=== PATIENT | female | born 1950 | race Caucasian/White ===

== ENCOUNTER → 2017-04-11 | Outpatient (CLI) | payer BC | END | disposition home or self-care (01) | LOC: CFH 12:12 | PROVIDERS: ATTEND Surgery | DX: E04.2 Nontoxic multinodular goiter (principal) | CPT/HCPCS: 76536 ==

== ENCOUNTER 2019-03-10 01:31 | Inpatient (IN) | payer MEDICARE ==
[~2019-03-10] VITALS: Ht 172.7 cm; Wt 72.0 kg
[2019-03-10] MEDS ORDERED: SODIUM CHLORIDE 0.9% 1,000 ML IV ONE (01:38)
[2019-03-10] MEDS ORDERED: PRAV20TA2 PO (01:53)
[2019-03-10] MEDS ORDERED: TIMO5DRO37 EACHEYE (01:53)
[2019-03-10] MEDS ORDERED: LATA7.5D EACHEYE (01:53)
[2019-03-10] MEDS ORDERED: METOPROLOL (01:53)
--- NOTE | 2019-03-10 01:53 | NUR ---
PT ABLE TO AMBULATE TO THE BATHROOM STEADILY ON HER OWN. PT RESTING IN BED. PLACED ON 2L OR FOR DESATING TO 87% WHILE DOZING TO SLEEP. BILAT BEDRAILS UP. LABS DRAWN. PIGTAIL PLACE DON IV, IV IS FLUSHING WELL. CALL LIGHT WITHIN REACH.
[2019-03-10 02:00] LABS: BASOPHILS % (AUTO) 0 % (0-1); EOSINOPHILS # (AUTO) 0.01 x10^3/uL (0-0.4); EOSINOPHILS % (AUTO) 0 % (1-7); LYMPHOCYTES # (AUTO) 0.77 x10^3/uL (1-3.4); LYMPHOCYTES % (AUTO) 9 % (22-44); MD NO; MEAN CORPUSCULAR HEMOGLOBIN 30.6 pg (27.0-34.8); MEAN CORPUSCULAR HGB CONC 32.8 g/dL (32.4-35.8); MEAN CORPUSCULAR VOLUME 93.4 fL (80-100); MEAN PLATELET VOLUME 6.9 fL (7.4-10.4); MONOCYTES # (AUTO) 0.42 x10^3/uL (0.2-0.8); MONOCYTES % (AUTO) 5 % (2-9); NEUTROPHILS # (AUTO) 7.54 x10^3/uL (1.8-6.8); NEUTROPHILS % (AUTO) 86 % (42-75); PLATELET COUNT 344 x10^3/uL (130-400); RED BLOOD COUNT 4.62 x10^6/uL (3.82-5.3); RED CELL DISTRIBUTION WIDTH 13.3 % (9.6-15.2)
[2019-03-10] MEDS ORDERED: SODIUM CHLORIDE FLUSH 10ML SYR IVF ONE (02:00)
[2019-03-10] MEDS ORDERED: MORPHINE SULFATE 4 MG/ML, 1ML IVPush PRN (02:00)
[2019-03-10] MEDS ORDERED: PLEASE ENTER ALLERGIES MC SCH (02:00)
[2019-03-10] MEDS ORDERED: ONDANSETRON 2MG/ML, 2ML IVPush ONE (02:00)
[2019-03-10 02:12] LABS: ALANINE AMINOTRANSFERASE 857 U/L (12-78); ALBUMIN 3.7 g/dL (3.4-5.0); ANION GAP 8 mmol/L (5-15); CALCIUM 8.5 mg/dL (8.5-10.1); CHLORIDE 108 mmol/L (98-107); CREATININE 0.71 mg/dL (0.55-1.02)
[2019-03-10 02:14] LABS: ALKALINE PHOSPHATASE 191 U/L (45-117); BILIRUBIN,TOTAL 2.4 mg/dL (0.2-1.0)
--- NOTE | 2019-03-10 02:28 | NUR ---
REPORT TO [facility] ROOM [id number]
[2019-03-10] MEDS ORDERED: ONDANSETRON 2MG/ML, 2ML IVPush PRN (03:00)
[2019-03-10] MEDS ORDERED: HYDROmorphone 2 MG/ML, 1ML IVPush PRN (03:00)
[2019-03-10] MEDS ORDERED: ACETAMINOPHEN 325 MG TABLET PO PRN ×2 (03:00→08:00)
[2019-03-10] MEDS ORDERED: LACTATED RINGERS 1,000 ML IV SCH (03:00)
[2019-03-10] MEDS ORDERED: LABETALOL 5MG/ML, 20ML IVPush PRN (03:00)
[2019-03-10] MEDS ORDERED: PROMETHAZINE 25 MG/ML, 1ML IM PRN (03:00)
[2019-03-10] MEDS: KETOROLAC 30 MG/1 ML IV PRN ×2 (03:17→19:24)
[2019-03-10 03:23] VITALS: BP 162/95
[2019-03-10] MEDS: METOPROLOL SUCCINATE 50 MG TAB.ER.24H PO SCH (05:48)
[2019-03-10 07:36] VITALS: BP 147/82
[2019-03-10] MEDS ORDERED: OXYcodone 5 MG/5 ML ORAL.SOL UDC PO PRN (08:00)
[2019-03-10] MEDS: TIMOLOL OPHTH 0.5%, 5ML EACHEYE SCH (08:33)
[2019-03-10] MEDS: SODIUM CHLORIDE 0.9% 1,000 ML IV SCH (08:33)
[2019-03-10] MEDS: LATANOPROST OPHTH 0.005%, 2.5ML EACHEYE SCH (08:33)
[2019-03-10] MEDS: ENOXAPARIN 40 MG/0.4 ML SQ SCH (08:33)
[2019-03-10] MEDS ORDERED: MEPERIDINE/PF 100 MG/ML ONE (10:21)
[2019-03-10] MEDS ORDERED: ROCURONIUM 10MG/ML,5ML ONE (10:21)
[2019-03-10] MEDS ORDERED: FENTANYL PF 100 MCG/2ML ONE (10:21)
[2019-03-10] MEDS ORDERED: SUCCINYLCHOLINE 20 MG/ML, 10ML ONE (10:21)
[2019-03-10] MEDS ORDERED: PROPOFOL 10 MG/ML, 20ML ONE (10:21)
[2019-03-10] MEDS ORDERED: OMNIPAQUE 350 MG/ML, 50 ML BOTTLE ONE (10:53)
[2019-03-10 14:27] VITALS: BP 146/76
[2019-03-10 19:59] VITALS: BP 131/69
[2019-03-10] MEDS: MORPHINE SULFATE 4 MG/ML, 1ML IVPush PRN (23:19)
[2019-03-11 01:44] VITALS: BP 137/70
[2019-03-11] MEDS: KETOROLAC 30 MG/1 ML IV PRN ×3 (05:55→21:08)
[2019-03-11] MEDS: METOPROLOL SUCCINATE 50 MG TAB.ER.24H PO SCH (05:55)
[2019-03-11] MEDS: SODIUM CHLORIDE 0.9% 1,000 ML IV SCH ×2 (06:00→21:15)
[2019-03-11 06:17] LABS: ALBUMIN 3.1 g/dL (3.4-5.0); ANION GAP 5 mmol/L (5-15); CALCIUM 8.5 mg/dL (8.5-10.1); CHLORIDE 104 mmol/L (98-107)
[2019-03-11 06:20] LABS: BASOPHILS # (AUTO) 0.01 x10^3/uL (0-0.1); BASOPHILS % (AUTO) 0 % (0-1); EOSINOPHILS % (AUTO) 0 % (1-7); LYMPHOCYTES # (AUTO) 0.88 x10^3/uL (1-3.4); LYMPHOCYTES % (AUTO) 7 % (22-44); MD NO; MEAN CORPUSCULAR HGB CONC 33.2 g/dL (32.4-35.8); MEAN CORPUSCULAR VOLUME 93.4 fL (80-100); MEAN PLATELET VOLUME 7.4 fL (7.4-10.4); MONOCYTES # (AUTO) 0.71 x10^3/uL (0.2-0.8); MONOCYTES % (AUTO) 6 % (2-9); NEUTROPHILS # (AUTO) 10.48 x10^3/uL (1.8-6.8); NEUTROPHILS % (AUTO) 87 % (42-75); PLATELET COUNT 283 x10^3/uL (130-400); RED BLOOD COUNT 4.12 x10^6/uL (3.82-5.3); RED CELL DISTRIBUTION WIDTH 13.5 % (9.6-15.2)
[2019-03-11 06:21] LABS: ALANINE AMINOTRANSFERASE 485 U/L (12-78); ALKALINE PHOSPHATASE 160 U/L (45-117); BILIRUBIN,TOTAL 1.1 mg/dL (0.2-1.0); CREATININE 0.58 mg/dL (0.55-1.02); TOTAL PROTEIN 6.3 g/dL (6.4-8.2)
[2019-03-11 07:40] VITALS: BP 131/76
[2019-03-11 08:36] LABS: INTERNATIONAL NORMALIZED RATIO 1.01 (0.93-1.1); PROTHROMBIN TIME 10.6 Seconds (9.6-11.5)
[2019-03-11] MEDS: LATANOPROST OPHTH 0.005%, 2.5ML EACHEYE SCH (08:48)
[2019-03-11] MEDS: TIMOLOL OPHTH 0.5%, 5ML EACHEYE SCH (08:48)
[2019-03-11] MEDS: ENOXAPARIN 40 MG/0.4 ML SQ SCH (08:48)
[2019-03-11 13:08] VITALS: BP 149/86
[2019-03-11 20:39] VITALS: BP 153/85
[2019-03-12 02:33] VITALS: BP 135/80
[2019-03-12] MEDS: MORPHINE SULFATE 4 MG/ML, 1ML IVPush PRN ×2 (04:01→08:14)
[2019-03-12 04:44] LABS: BASOPHILS # (AUTO) 0.02 x10^3/uL (0-0.1); BASOPHILS % (AUTO) 0 % (0-1); EOSINOPHILS # (AUTO) 0.05 x10^3/uL (0-0.4); EOSINOPHILS % (AUTO) 0 % (1-7); LYMPHOCYTES % (AUTO) 7 % (22-44); MD NO; MEAN CORPUSCULAR HEMOGLOBIN 31.1 pg (27.0-34.8); MEAN CORPUSCULAR HGB CONC 33.3 g/dL (32.4-35.8); MEAN CORPUSCULAR VOLUME 93.3 fL (80-100); MONOCYTES # (AUTO) 0.76 x10^3/uL (0.2-0.8); MONOCYTES % (AUTO) 6 % (2-9); NEUTROPHILS # (AUTO) 10.27 x10^3/uL (1.8-6.8); NEUTROPHILS % (AUTO) 86 % (42-75); PLATELET COUNT 260 x10^3/uL (130-400); RED BLOOD COUNT 3.85 x10^6/uL (3.82-5.3)
[2019-03-12 05:00] LABS: ALBUMIN 2.9 g/dL (3.4-5.0); BILIRUBIN, DIRECT 0.3 mg/dL (0.1-0.2)
[2019-03-12 05:02] LABS: BILIRUBIN,INDIRECT 0.4 mg/dL (0.0-2.0); BILIRUBIN,TOTAL 0.7 mg/dL (0.2-1.0); TOTAL PROTEIN 6.4 g/dL (6.4-8.2)
[2019-03-12] MEDS: METOPROLOL SUCCINATE 50 MG TAB.ER.24H PO SCH (06:28)
[2019-03-12] MEDS ORDERED: BUPIVACAINE/PF 0.5% ONE (07:14)
[2019-03-12] MEDS ORDERED: EPINEPHRINE 1 MG/ML, 1ML ONE (07:14)
[2019-03-12] MEDS: ENOXAPARIN 40 MG/0.4 ML SQ SCH (08:15)
[2019-03-12 08:17] VITALS: BP 132/76
[2019-03-12] MEDS ORDERED: LACTATED RINGERS 1,000 ML IV SCH (09:12)
[2019-03-12] MEDS ORDERED: PROPOFOL 50 ML ONE (09:12)
[2019-03-12] MEDS ORDERED: MIDAZOLAM 1 MG/ML, 2ML ONE (09:12)
[2019-03-12] MEDS ORDERED: FENTANYL PF 250 MCG/5ML ONE (09:12)
[2019-03-12] MEDS ORDERED: DEXAMETHASONE 4 MG/ML, 1ML ONE (09:13)
[2019-03-12] MEDS ORDERED: ONDANSETRON 2MG/ML, 2ML ONE ×2 (09:13→11:16)
[2019-03-12] MEDS ORDERED: KETOROLAC 30 MG/1 ML ONE (09:13)
[2019-03-12] MEDS ORDERED: SUCCINYLCHOLINE 20 MG/ML, 10ML ONE (09:13)
[2019-03-12] MEDS ORDERED: ROCURONIUM 10MG/ML,5ML ONE (09:13)
[2019-03-12] MEDS ORDERED: ONDANSETRON 2MG/ML, 2ML IV PRN (10:00)
[2019-03-12] MEDS ORDERED: EPHEDRINE 50 MG/ML, 1ML IVPush PRN (10:00)
[2019-03-12] MEDS ORDERED: DIPHENHYDRAMINE 50 MG/ML, 1ML IVPush PRN (10:00)
[2019-03-12] MEDS ORDERED: MIDAZOLAM 1 MG/ML, 2ML IV PRN (10:00)
[2019-03-12] MEDS ORDERED: ONDANSETRON ODT 8 MG PO PRN (10:00)
[2019-03-12] MEDS ORDERED: PROMETHAZINE 25 MG/ML, 1ML IV PRN (10:00)
[2019-03-12] MEDS ORDERED: MEPERIDINE/PF 25MG/0.5ML IVPush PRN (10:00)
[2019-03-12] MEDS ORDERED: OXYcodone 5 MG/5 ML ORAL.SOL UDC PO PRN (10:00)
[2019-03-12] MEDS: SODIUM CHLORIDE 0.9% 1,000 ML IV SCH ×2 (10:00→21:44)
[2019-03-12] MEDS ORDERED: EPHEDRINE 50 MG/ML, 1ML IM PRN (10:00)
[2019-03-12] MEDS ORDERED: MORPHINE SULFATE 4 MG/ML, 1ML IVPush PRN (10:00)
[2019-03-12] MEDS ORDERED: FENTANYL PF 100 MCG/2ML ONE (11:16)
[2019-03-12] MEDS ORDERED: OXYcodone 5 MG/5 ML ORAL.SOL UDC ONE (11:16)
[2019-03-12] MEDS: FENTANYL PF 100 MCG/2ML IV PRN ×2 (11:20→11:26)
[2019-03-12] MEDS ORDERED: MORPHINE SULFATE 4 MG/ML, 1ML ONE (11:34)
[2019-03-12] MEDS ORDERED: LABETALOL 5 MG/ML SYRINGE IV PRN (12:00)
[2019-03-12 13:06] VITALS: BP 146/84
[2019-03-12] MEDS: KETOROLAC 30 MG/1 ML IV SCH ×2 (15:47→21:00)
[2019-03-12 18:50] VITALS: BP 147/83
[2019-03-12] MEDS: ACETAMINOPHEN 325 MG TABLET PO SCH (20:09)
[2019-03-12] MEDS: LATANOPROST OPHTH 0.005%, 2.5ML EACHEYE SCH (21:00)
[2019-03-12] MEDS: TIMOLOL OPHTH 0.5%, 5ML EACHEYE SCH (21:00)
[2019-03-13 00:49] VITALS: BP 117/74
[2019-03-13] MEDS: ACETAMINOPHEN 325 MG TABLET PO SCH ×4 (01:46→19:48)
[2019-03-13] MEDS: KETOROLAC 30 MG/1 ML IV SCH ×4 (01:46→21:41)
[2019-03-13 04:26] VITALS: BP 116/73
[2019-03-13 05:41] LABS: BASOPHILS % (AUTO) 0 % (0-1); EOSINOPHILS # (AUTO) 0.02 x10^3/uL (0-0.4); EOSINOPHILS % (AUTO) 0 % (1-7); LYMPHOCYTES % (AUTO) 9 % (22-44); MD NO; MEAN CORPUSCULAR HGB CONC 33.3 g/dL (32.4-35.8); MEAN CORPUSCULAR VOLUME 93.1 fL (80-100); MEAN PLATELET VOLUME 7.2 fL (7.4-10.4); MONOCYTES % (AUTO) 7 % (2-9); NEUTROPHILS % (AUTO) 84 % (42-75); PLATELET COUNT 244 x10^3/uL (130-400); RED BLOOD COUNT 3.44 x10^6/uL (3.82-5.3); RED CELL DISTRIBUTION WIDTH 13.3 % (9.6-15.2)
[2019-03-13 05:43] VITALS: BP 148/81
[2019-03-13] MEDS: METOPROLOL SUCCINATE 50 MG TAB.ER.24H PO SCH (05:44)
[2019-03-13] MEDS: LATANOPROST OPHTH 0.005%, 2.5ML EACHEYE SCH (07:55)
[2019-03-13] MEDS: TIMOLOL OPHTH 0.5%, 5ML EACHEYE SCH (07:55)
[2019-03-13] MEDS: ENOXAPARIN 40 MG/0.4 ML SQ SCH (07:56)
[2019-03-13 07:58] VITALS: BP 147/79
[2019-03-13 13:56] VITALS: BP 135/79
[2019-03-13 19:20] VITALS: BP 135/84
[2019-03-14 02:06] VITALS: BP 132/80
[2019-03-14] MEDS: ACETAMINOPHEN 325 MG TABLET PO SCH ×2 (02:45→07:37)
[2019-03-14] MEDS: KETOROLAC 30 MG/1 ML IV SCH ×2 (02:45→07:37)
[2019-03-14 05:52] VITALS: BP 138/79
[2019-03-14] MEDS: METOPROLOL SUCCINATE 50 MG TAB.ER.24H PO SCH (05:53)
[2019-03-14 06:46] VITALS: BP 144/84
[2019-03-14] MEDS: TIMOLOL OPHTH 0.5%, 5ML EACHEYE SCH (07:37)
[2019-03-14] MEDS: LATANOPROST OPHTH 0.005%, 2.5ML EACHEYE SCH (07:37)
[2019-03-14] MEDS: ENOXAPARIN 40 MG/0.4 ML SQ SCH (07:37)
== END 2019-03-14 10:15 | disposition home or self-care (01) | DRG 417 ==
LOC: ED 02:10 → EDIP 02:11 → 4NOR 03:04 → DCLOUNGE 03-14 10:12
PROVIDERS: ADMIT Family Medicine; ATTEND Family Medicine
PROC: BF101ZZ Fluoroscopy of Bile Ducts using Low Osmolar Contrast (ICD-10-PCS; 2019-03-10)
PROC: 0FC98ZZ Extirpation of Matter from Common Bile Duct, Via Natural or Artificial Opening Endoscopic (ICD-10-PCS; principal; 2019-03-10 10:00)
PROC: 0FT44ZZ Resection of Gallbladder, Percutaneous Endoscopic Approach (ICD-10-PCS; 2019-03-12)
DX: K80.62 Calculus of gallbladder and bile duct with acute cholecystitis without obstruction (principal); K85.10 Biliary acute pancreatitis without necrosis or infection; R74.0 Nonspecific elevation of levels of transaminase and lactic acid dehydrogenase [LDH]; E78.5 Hyperlipidemia, unspecified; G89.29 Other chronic pain; H40.9 Unspecified glaucoma; I10 Essential (primary) hypertension; K44.9 Diaphragmatic hernia without obstruction or gangrene; Z80.0 Family history of malignant neoplasm of digestive organs; Z80.7 Family history of other malignant neoplasms of lymphoid, hematopoietic and related tissues; Z90.710 Acquired absence of both cervix and uterus; Z88.8 Allergy status to other drugs, medicaments and biological substances
CPT/HCPCS: 36415; 74328; 76705; 80053; 80076; 83690; 85025; 85610; 88304; 99285; G0378; J0171; J1100; J1170; J1650; J1885; J2250; J2405; J2704; J3010; Q9967; C1769; J0330; J2175; J2270; J7030; J7120